=== PATIENT | female | born 1955 | race Caucasian/White ===

== ENCOUNTER 2016-04-19 15:37 | Emergency (ER) | payer SELFPAY ==
--- NOTE | 2016-04-19 16:33 | UC ---
Back Pain HPI - HPI Summary HPI Summary: frequent urination with pain, also has harsh cough (refuses albuterol neb) - History of Current Complaint Chief Complaint: UCRespiratory Stated Complaint: BACK PAIN Time Seen by Provider: 04/19/16 16:09 Hx Obtained From: Patient ?: No Onset/Duration: Gradual Onset, Lasting Days - 7, Still Present Timing: Constant Severity Initially: Mild Severity Currently: Mild Pain Intensity: 4 Pain Scale Used: 0-10 Numeric Character: Aching, Burning Aggravating: Cough Alleviating: Nothing Associated Signs And Symptoms: Positive: Negative - Allergies/Home Medications Allergies/Adverse Reactions: Allergies Allergy/AdvReac Type Severity Reaction Status Date / Time No Known Allergies Allergy Verified 04/19/16 16:04 Home Medications: Home Medications Ibuprofen TAB* [Motrin TAB* 800 MG] 04/19/16 [History] PMH/Surg Hx/FS Hx/Imm Hx Previously Healthy: Yes - Surgical History Surgical History: None - Family History Known Family History: Positive: None Family History: denies cardiovascular issues in family lineage - Social History Occupation: Unemployed Lives: With Family Alcohol Use: Rare Substance Use Type: None Smoking Status (MU): Never Smoked Tobacco Have You Smoked in the Last Year: No Review of Systems Constitutional: Negative Skin: Negative Eyes: Negative ENT: Negative Respiratory: Cough Cardiovascular: Negative Gastrointestinal: Negative Genitourinary: Dysuria, Frequency, Urgency Motor: Negative Neurovascular: Negative Musculoskeletal: Negative Neurological: Negative Psychological: Negative All Other Systems Reviewed And Are Negative: Yes Physical Exam Triage Information Reviewed: Yes Appearance: Well-Appearing, No Pain Distress, Well-Nourished Vital Signs: Initial Vital Signs Temp 97.8 F 04/19/16 15:57 Pulse 93 04/19/16 15:57 Resp 12 04/19/16 15:57 BP 145/93 04/19/16 15:57 Pulse Ox 100 04/19/16 15:57 Eye Exam: Normal Eyes: Positive: Conjunctiva Clear ENT Exam: Normal ENT: Positive: Normal ENT inspection, Hearing grossly normal, Pharynx normal, TMs normal. Negative: Nasal congestion, Nasal drainage, Tonsillar swelling, Tonsillar exudate, Trismus, Muffled/hoarse voice Dental Exam: Normal Neck exam: Normal Neck: Positive: Supple, Nontender, No Lymphadenopathy Respiratory Exam: Normal Respiratory: Positive: Chest non-tender, No respiratory distress, No accessory muscle use, Wheezing Cardiovascular Exam: Normal Cardiovascular: Positive: RRR, No Murmur, Pulses Normal, Brisk Capillary Refill Abdominal Exam: Normal Abdomen Description: Positive: No Organomegaly, Soft, Other: - supra pubic fullness. Negative: Nontender Bowel Sounds: Positive: Present Musculoskeletal Exam: Normal Musculoskeletal: Positive: Strength Intact, ROM Intact, No Edema Neurological Exam: Normal Neurological: Positive: Alert, Muscle Tone Normal Psychological Exam: Normal Skin Exam: Normal Back Pain Course/Dx - Course Course Of Treatment: keflex, prednisone, increase fluids follow with pcp - Differential Dx/Diagnosis Differential Diagnosis/HQI/PQRI: Strain, Sprain, Other - bronchitis, uti Provider Diagnoses: UTI, Bronchitis Discharge - Discharge Plan Condition: Stable Disposition: HOME Prescriptions: Cephalexin CAP* [Keflex CAP*] 500 mg PO BID #14 cap predniSONE TAB* [Deltasone TAB*] 10 mg PO DAILY #20 tab Patient Education Materials: Urinary Tract Infection in Women (ED), Bronchospasm (ED) Referrals: Valentin Gleason MD [Primary Care Provider] - 7 Days
== END 2016-04-19 16:52 | disposition home or self-care (01) ==
LOC: UCEAST 15:37
DX: N39.0 Urinary tract infection, site not specified (principal); J40 Bronchitis, not specified as acute or chronic
CPT/HCPCS: 81002; 87077; 87086; 87186; 99202; G0463

== ENCOUNTER 2017-08-21 18:57 | Emergency (ER) | payer SELFPAY ==
[2017-08-21] MEDS ORDERED: Ketorolac INJ* 30 MG/ML 1 ML VIAL IM ONE (21:20)
[2017-08-21] MEDS ORDERED: Cyclobenzaprine TAB* 10 MG PO ONE (21:21)
--- NOTE | 2017-08-21 21:30 | ED ---
Back Pain - HPI Summary HPI Summary: 61-year-old male presents with back pain since a fall Thursday. She states that she tripped and fell on her knees and that she felt a pull in her back. States her pain is on the sides of her lower back and lower mid back. She denies any weakness. No saddle anesthesia or loss of bowel or bladder. No fevers. No numbness or tingling. He does not have a history of back pain. She states that the pain is sometimes very intense and causes her more pain when she takes a deep breath. She denies any chest pain or shortness of breath. No urinary symptoms. She has been taking ibuprofen with minimal relief. She is only here to evaluate for her back pain. She states that her knees and other injuries are fine. - History of Current Complaint Chief Complaint: EDBackInjuryPain Stated Complaint: BACK PAIN Time Seen by Provider: 08/21/17 21:13 Pain Intensity: 6 - Allergies/Home Medications Allergies/Adverse Reactions: Allergies Allergy/AdvReac Type Severity Reaction Status Date / Time No Known Allergies Allergy Verified 08/21/17 19:13 PMH/Surg Hx/FS Hx/Imm Hx Endocrine/Hematology History: Denies: Hx Anticoagulant Therapy Cardiovascular History: Denies: Hx Myocardial Infarction Infectious Disease History: No Infectious Disease History: Denies: Traveled Outside the [place] in Last 30 Days - Family History Known Family History: Positive: None Family History: denies cardiovascular issues in family lineage - Social History Alcohol Use: Rare Substance Use Type: Reports: None Smoking Status (MU): Never Smoked Tobacco Have You Smoked in the Last Year: No Review of Systems Negative: Fever Negative: Chest Pain Negative: Shortness Of Breath Positive: Myalgia - back pain All Other Systems Reviewed And Are Negative: Yes Physical Exam Triage Information Reviewed: Yes Vital Signs On Initial Exam: Initial Vitals Temp Pulse Resp BP Pulse Ox 97.7 F 91 16 155/96 98 08/21/17 19:11 08/21/17 19:11 08/21/17 19:11 08/21/17 19:11 08/21/17 19:11 Vital Signs Reviewed: Yes Appearance: Positive: Well-Appearing Skin: Positive: Warm, Dry Head/Face: Positive: Normal Head/Face Inspection Eyes: Positive: Normal, Conjunctiva Clear ENT: Positive: Pharynx normal Respiratory/Lung Sounds: Positive: Clear to Auscultation, Breath Sounds Present Cardiovascular: Positive: Normal, RRR Musculoskeletal: Positive: Strength/ROM Intact - back, Other - Tenderness lower back and thoracic back, good pulses, negative straight leg raise, sensation grossly intact, good pulses Neurological: Positive: Reflexes Intact - Patella, Normal Gait Psychiatric: Positive: Normal Diagnostics - Vital Signs Vital Signs Temp Pulse Resp BP Pulse Ox 08/21/17 21:00 98.2 F 72 20 151/69 99 08/21/17 19:11 97.7 F 91 16 155/96 98 - Laboratory Lab Statement: Any lab studies that have been ordered have been reviewed, and results considered in the medical decision making process. - Radiology back Xray Interpretation: No Acute Changes Radiology Interpretation Completed By: ED Physician thoracic Xray Interpretation: No Acute Changes Radiology Interpretation Completed By: ED Physician Back Pain Course/Dx - Course Course Of Treatment: 61-year-old male presents with back pain since a fall Thursday. She states that she tripped and fell on her knees and that she felt a pull in her back. States her pain is on the sides of her lower back and lower mid back. She denies any weakness. No saddle anesthesia or loss of bowel or bladder. No fevers. No numbness or tingling. He does not have a history of back pain. She states that the pain is sometimes very intense and causes her more pain when she takes a deep breath. She denies any chest pain or shortness of breath. No urinary symptoms. She has been taking ibuprofen with minimal relief. On exam tenderness lower back. Neurovascularly intact. X -ray read by me as normal. We'll treat as strain with Flexeril and told to continue ibuprofen. Told to follow up primary. Patient understands agrees with plan. - Diagnoses Differential Diagnosis/HQI/PQRI: Positive: Herniated Disc - ., Strain, Sprain Provider Diagnoses: Back pain Discharge - Sign-Out/Discharge Documenting (check all that apply): Discharge/Admit/Transfer - Discharge Plan Condition: Good Disposition: HOME Prescriptions: Cyclobenzaprine TAB* [Flexeril 10 MG TAB*] 10 mg PO TID PRN #21 tab PRN Reason: Pain Patient Education Materials: Back Pain (ED) Referrals: Valentin Gleason MD [Primary Care Provider] - Additional Instructions: Take muscle relaxers three times a day Use ibuprofen or Tylenol for pain every 6 hours ice/heat area, move as much as possible Follow up with primary within 5 days Return to ED if develop any new or worsening symptoms - Billing Disposition and Condition Condition: GOOD Disposition: Home
[2017-08-21 23:04] VITALS: BP 132/69
--- NOTE | 2017-08-22 07:05 | RAD ---
INDICATION: Low back pain. COMPARISON: There are no prior studies available for comparison. TECHNIQUE: 5 views of the lumbar spine were obtained including lateral, oblique, AP and a coned-down lateral view of the lumbar sacral junction. FINDINGS: The vertebra are in normal alignment. There is a mild compression fracture of the superior endplate of the L1 vertebral body age indeterminate although likely old. There is moderate diffuse degenerative disc disease. The results of this exam were called to the emergency department charge nurse Mary. IMPRESSION: 1. MILD COMPRESSION FRACTURE OF THE L1 VERTEBRAL BODY, AGE-INDETERMINATE ALTHOUGH LIKELY OLD. 2. MODERATE DIFFUSE DEGENERATIVE DISC DISEASE.
--- NOTE | 2017-08-22 07:06 | RAD ---
INDICATION: Low back pain. COMPARISON: Comparison is made with a prior x-ray study of the lumbar spine. TECHNIQUE: AP and lateral films of the spine were obtained centered at the dorsal lumbar junction. FINDINGS: There is a mild dorsal scoliosis convex toward the right side. Again note is made of a mild compression fracture of the superior endplate of the L1 vertebral body age indeterminate although likely old. No other fractures are seen. There is moderate to severe diffuse degenerative disc disease. IMPRESSION: MILD COMPRESSION FRACTURE OF THE L1 VERTEBRAL BODY.
== END 2017-08-21 23:03 | disposition home or self-care (01) ==
LOC: ED 18:57
DX: M54.5 Low back pain (principal); S32.010A Wedge compression fracture of first lumbar vertebra, initial encounter for closed fracture; W01.0XXA Fall on same level from slipping, tripping and stumbling without subsequent striking against object, initial encounter; Y93.9 Activity, unspecified; Y92.9 Unspecified place or not applicable; M51.37 Other intervertebral disc degeneration, lumbosacral region
CPT/HCPCS: 72080; 72110; 96372; 99282; A9270-GY; J1885